=== PATIENT | female | born 1970 | race Caucasian/White ===

== ENCOUNTER 2025-06-27 01:11 | Emergency (ER) | payer SELFPAY ==
[~2025-06-27] VITALS: Ht 162.6 cm; Wt 56.8 kg
[2025-06-27 01:23] VITALS: BP 102/83; PULSE 118; RESP 17; TEMP 101.1; O2SAT 96
[2025-06-27 01:49] LABS: COVID AG,FIA SOURCE NASAL SWAB
[2025-06-27 02:06] LABS: SARS-COV2 (COVID) ANTIGEN,FIA Negative (Negative)
[2025-06-27 02:09] LABS: INFLUENZA TYPE A NEGATIVE FOR TYPE A (NEGATIVE); INFLUENZA TYPE B NEGATIVE FOR TYPE B (NEGATIVE)
[2025-06-27] MEDS: SODIUM CHLORIDE 0.9% 1,150 ML IV ONE (02:12)
[2025-06-27] MEDS ORDERED: 0.9% SODIUM CHLORIDE 10 ML SYRINGE IVP PRN (02:15)
[2025-06-27 02:32] LABS: PLATELET COUNT (AUTO) 152 K/uL (150-450); RED BLOOD CELL COUNT(AUTO) 4.84 MIL/uL (4.00-5.20); RED CELL DISTRIBUTION WIDTH 15.0 % (11.5-14.5); WHITE BLOOD COUNT (AUTO) 11.2 K/uL (4.5-11.0)
[2025-06-27 02:41] LABS: CALCIUM, TOTAL 9.1 mg/dL (8.8-10.5); CREATININE 0.93 mg/dL (0.60-1.30); GLOMERULAR FILTR. RATE CALC > 60 mL/min (>60); GLUCOSE,RANDOM 108 mg/dL (70-110); SODIUM SERUM 134 mmol/L (136-145); UREA NITROGEN, BLOOD 16 mg/dL (7-18)
[2025-06-27] MEDS: ACETAMINOPHEN 650 MG/ISO-OSM 65 ML IV ONE (02:49)
[2025-06-27 03:01] LABS: LACTIC ACID 0.8 mmol/L (0.4-2.0)
[2025-06-27] MEDS: MORPHINE SULFATE 4 MG/ML SYRINGE IVP ONE (03:15)
[2025-06-27] MEDS ORDERED: MORPHINE SULFATE 2 MG/ML SYRINGE IVP ONE (03:15)
[2025-06-27] MEDS: LORazepam 2 MG/ML VIAL IVP ONE (03:15)
== END 2025-06-27 03:20 | disposition left against medical advice (07) ==
LOC: EMS 01:13
DX: M54.9 Dorsalgia, unspecified (principal); R05.9 Cough, unspecified; R50.9 Fever, unspecified; Z20.822 Contact with and (suspected) exposure to COVID-19; Z53.29 Procedure and treatment not carried out because of patient's decision for other reasons
CPT/HCPCS: 99291; 96374; 71045; 96361; 87426; 80048; 83605; 85025; 85610; 87040; 87804; 36415; 93005; 84145; J2060; J2270; J7030; J0131